=== PATIENT | female | born 2005 | race Two or more races ===

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

== ENCOUNTER 2023-10-16 22:50 | Emergency (ER) | payer MEDICAID, OTHER ==
[~2023-10-16] VITALS: Ht 165.1 cm; Wt 72.7 kg
[~2023-10-16 22:50] MED LIST changes: -ACET325C4 PO; +AMOX250C4 PO; -CEPH-558 PO
[2023-10-16 22:53] VITALS: BP 115/72; PULSE 70; RESP 18; TEMP 99.2; O2SAT 100
[2023-10-17] MEDS ORDERED: IBUP-1554 PO (00:32)
[2023-10-17] MEDS: IBUPROFEN 600 MG TABLET PO ONE (01:15)
== END 2023-10-17 01:51 | disposition home or self-care (01) ==
LOC: EMS 22:50
DX: S93.402A Sprain of unspecified ligament of left ankle, initial encounter (principal); F12.90 Cannabis use, unspecified, uncomplicated; X50.1XXA Overexertion from prolonged static or awkward postures, initial encounter; Y93.89 Activity, other specified; Y92.89 Other specified places as the place of occurrence of the external cause; Y99.8 Other external cause status
CPT/HCPCS: 99283